=== PATIENT | female | born 1940 | race Caucasian/White ===

== ENCOUNTER 2022-08-15 13:10 | Outpatient (CLI) | payer MEDICARE | END 2022-08-15 13:11 | disposition home or self-care (01) | LOC: TBSIIMAG 13:10 | PROVIDERS: ATTEND Neurological Surgery | DX: S32.010D Wedge compression fracture of first lumbar vertebra, subsequent encounter for fracture with routine healing (principal) | CPT/HCPCS: 72100 ==

== ENCOUNTER 2022-10-02 14:13 | Outpatient (CLI) | payer MEDICARE | END 2022-10-02 14:14 | disposition home or self-care (01) | LOC: TBSIIMAG 14:13 | PROVIDERS: ATTEND Neurological Surgery | DX: S22.008A Other fracture of unspecified thoracic vertebra, initial encounter for closed fracture (principal) | CPT/HCPCS: 72100 ==

== ENCOUNTER 2022-10-29 13:50 | Outpatient (CLI) | payer MEDICARE | END 2022-10-29 13:51 | disposition home or self-care (01) | LOC: TBSIIMAG 13:50 | PROVIDERS: ATTEND Neurological Surgery | DX: M48.56XA Collapsed vertebra, not elsewhere classified, lumbar region, initial encounter for fracture (principal) | CPT/HCPCS: 72100 ==

== ENCOUNTER 2023-12-01 12:30 | Outpatient (CLI) | payer MEDICARE | END 2023-12-01 12:31 | disposition home or self-care (01) | LOC: PET 12:30 | PROVIDERS: ATTEND Psychiatry & Neurology Neurology | DX: R41.3 Other amnesia (principal) | CPT/HCPCS: 78803; A9552 ==